=== PATIENT | female | born 1990 ===

== ENCOUNTER 2022-02-13 22:16 | Emergency (ER) | payer SELFPAY ==
[2022-02-13 22:32] VITALS: BP 131/80
== END 2022-02-14 01:00 | disposition left against medical advice (07) ==
LOC: ED 22:16
DX: S93.401A Sprain of unspecified ligament of right ankle, initial encounter (principal); Z53.21 Procedure and treatment not carried out due to patient leaving prior to being seen by health care provider; X58.XXXA Exposure to other specified factors, initial encounter; Y93.89 Activity, other specified; Y92.89 Other specified places as the place of occurrence of the external cause; Y99.8 Other external cause status